=== PATIENT | male | born 1985 | race Caucasian/White ===

== ENCOUNTER 2020-04-15 18:35 | Emergency (ER) | payer SELFPAY ==
[2020-04-15 19:09] VITALS: TEMP 98.1; BMI 29.1
[2020-04-15 20:58] LABS: BASO % 2.3 % (0-2.0); EOS % 0.7 % (0-4.5); HEMATOCRIT 44.8 % (35.4-49); LYMPH % 28.3 % (8-40); MCH 31.8 pg (25.7-33.7); MCHC 33.5 g/dl (32.0-35.9); MEAN CELL VOLUME 94.9 fl (80-96); MEAN PLT VOLUME 8.1 fl (7.5-11.1); MONO % 16.1 % (3.8-10.2); NEUT % 52.6 % (42.8-82.8); PLATELET COUNT 133 K/MM3 (134-434); RBC 4.72 M/mm3 (4.00-5.60); RDW 12.8 % (11.9-15.9); WHITE BLOOD COUNT 4.4 K/mm3 (4.0-10.0)
[2020-04-15 21:14] LABS: CHLORIDE 104 mmol/L (98-107); POTASSIUM 4.3 mmol/L (3.5-5.1); SODIUM 140 mmol/L (136-145)
[2020-04-15 21:16] LABS: CALCIUM 9.3 mg/dL (8.5-10.1)
[2020-04-15 21:17] LABS: ALBUMIN 4.3 g/dl (3.4-5.0); ANION GAP 12 MMOL/L (8-16); BLOOD UREA NITROGEN 3.7 mg/dL (7-18); CO2 24 mmol/L (21-32); GLUCOSE,RANDOM 95 mg/dL (74-106)
[2020-04-15 21:20] LABS: CREATININE 0.6 mg/dL (0.55-1.3); SGOT/AST 245 U/L (15-37); SGPT/ALT 208 U/L (13-61)
[2020-04-15 21:22] LABS: BILIRUBIN,TOTAL 1.2 mg/dL (0.2-1); TOT PROT 8.1 g/dl (6.4-8.2)
[2020-04-15 21:23] LABS: ALK PHOS 60 U/L (45-117)
[2020-04-15 21:36] VITALS: BP 146/101
[2020-04-16 02:26] VITALS: PULSE 78
== END 2020-04-16 02:26 | disposition home or self-care (01) ==
LOC: JER 18:35
DX: R07.89 Other chest pain (principal)
CPT/HCPCS: 36415; 71046-TC-FY; 71275-TC; 80053; 82550; 82553; 84484; 85025; 85379; 93005; 93010; 99285-25